=== PATIENT | male | born 1990 | race Caucasian/White ===

== ENCOUNTER → 2016-09-26 | Emergency (ER) | payer SELFPAY | LOC: FASTR 12:23 | CPT/HCPCS: 87804; 87880 ==

== ENCOUNTER 2016-09-28 12:57 | Emergency (ER) | payer SELFPAY ==
[2016-09-28] MEDS ORDERED: ACETAMINOPHEN 160 MG/5 ML UDC ONE (19:25)
== END 2016-09-28 13:15 | disposition home or self-care (01) ==
LOC: FASTR 12:57
DX: J20.9 Acute bronchitis, unspecified (principal); F17.210 Nicotine dependence, cigarettes, uncomplicated